=== PATIENT | male | born 1985 | race Caucasian/White ===

== ENCOUNTER 2016-12-14 05:24 | Observation (INO) | payer MEDICAID, OTHER ==
[~2016-12-14] VITALS: Ht 185.4 cm; Wt 104.3 kg
[2016-12-14 06:55] LABS: Urine Bilirubin Negative (Negative); Urine Blood Negative /uL (Negative); Urine Color Yellow (Yellow); Urine Glucose Normal (Normal); Urine Ketone Negative (Negative); Urine Nitrite Negative (Negative); Urine RBC 1 /hpf (0 - 3); Urine Urobilinogen Normal (Negative)
[2016-12-14] MEDS ORDERED: SODIUM CHLORIDE 0.9% 1,000 ML IV ONE (07:34)
[2016-12-14] MEDS ORDERED: LORazepam 2MG/ML-1ML VIAL IV ONE (07:45)
[2016-12-14] MEDS: OLANZapine 5 MG TAB PO ONE ×2 (07:48→08:25)
[2016-12-14 08:22] LABS: Basophils # (auto) 0.1 uL; Basophils % (auto) 1.2 % (0.0-2.0); Eosinophils # (auto) 0 uL; Eosinophils % (auto) 0.4 % (0.0-7.0); Hematocrit 49.8 % (41.0-53.0); Hemoglobin 17.2 g/dL (13.5-17.5); Lymphocytes # (auto) 1.8 uL; Mean Corpuscular Hemoglobin 30.7 pg (28.0-32.0); Mean Corpuscular Hgb Conc. 34.5 g/dL (32.0-36.0); Mean Corpuscular Volume 88.9 fL (80.0-100.0); Mean Platelet Volume 8.4 fL (7.4-10.4); Monocytes # (auto) 0.5 uL; Monocytes % (auto) 7.4 % (0.0-12.0); Neutrophils # (auto) 4.7 uL; Platelet Count (auto) 402 10^3/uL (140-450); Red Cell Distribution Width 13.8 % (11.6-16.0); White Blood Cell 7.1 10^3/uL (4.4-10.8)
[2016-12-14 08:32] LABS: INR 0.97 (0.9-1.15); Partial Thromboplastin Time 31.5 sec (22.64-33.71); Prothrombin Time 10.6 sec (9.37-12.3)
[2016-12-14 08:52] LABS: Salicylate 2.7 mg/dL (2.8-20.0)
[2016-12-14 08:53] LABS: Acetaminophen < 2.0 ug/mL (10-30)
[2016-12-14 09:04] VITALS: BP 167/105
[2016-12-14 09:17] LABS: Albumin 4.8 g/dL (3.4-5.0); BUN/Creatinine Ratio 4.4; Potassium 3.7 mmol/L (3.5-5.1)
[2016-12-14 09:19] LABS: Bilirubin, Total 0.3 mg/dL (0.2-1.0); Total Protein 8.4 g/dL (6.4-8.2)
== END 2016-12-14 10:31 | disposition left against medical advice (07) | DRG 753 ==
LOC: ER 05:24 → EDBD 05:24 → OVERFLOW 07:36 → ER 10:31
PROVIDERS: ADMIT Emergency Medicine; ATTEND Emergency Medicine
DX: F31.32 Bipolar disorder, current episode depressed, moderate (principal); I10 Essential (primary) hypertension; F15.10 Other stimulant abuse, uncomplicated; F12.10 Cannabis abuse, uncomplicated; F10.10 Alcohol abuse, uncomplicated; F41.9 Anxiety disorder, unspecified; F17.210 Nicotine dependence, cigarettes, uncomplicated
CPT/HCPCS: 36415; 80053; 80307; 80329; 81001; 83735; 84443; 85025; 85610; 85730; 93005; 96361; 96374; 99285; G0378; J2060; J7030

== ENCOUNTER 2016-12-26 01:19 | Emergency (ER) | payer MEDICAID ==
[~2016-12-26] VITALS: Ht 185.4 cm; Wt 99.8 kg
[2016-12-26 02:17] LABS: Basophils # (auto) 0.1 uL; Basophils % (auto) 1.4 % (0.0-2.0); CONDITION AutoValidated; Eosinophils # (auto) 0.1 uL; Eosinophils % (auto) 1.5 % (0.0-7.0); Hematocrit 50.4 % (41.0-53.0); Lymphocytes # (auto) 2.8 uL; Lymphocytes % (auto) 43.2 % (10.0-50.0); Mean Corpuscular Hemoglobin 30.6 pg (28.0-32.0); Mean Corpuscular Hgb Conc. 33.6 g/dL (32.0-36.0); Mean Corpuscular Volume 90.9 fL (80.0-100.0); Mean Platelet Volume 8.1 fL (7.4-10.4); Monocytes # (auto) 0.5 uL; Neutrophils # (auto) 3.1 uL; Neutrophils % (auto) 46.9 % (37.0-80.0); Platelet Count (auto) 382 10^3/uL (140-450); Red Cell Distribution Width 14.3 % (11.6-16.0); White Blood Cell 6.6 10^3/uL (4.4-10.8)
[2016-12-26 02:26] LABS: Acetaminophen < 2.0 ug/mL (10-30); Albumin 4.4 g/dL (3.4-5.0); BUN/Creatinine Ratio 2.4; Calcium 8.5 mg/dL (8.5-10.1); Potassium 3.9 mmol/L (3.5-5.1); Salicylate 2.8 mg/dL (2.8-20.0)
[2016-12-26 02:29] LABS: Bilirubin, Total 0.3 mg/dL (0.2-1.0)
[2016-12-26 02:50] LABS: Urine Bilirubin Negative (Negative); Urine Blood Negative /uL (Negative); Urine Color Yellow (Yellow); Urine Glucose Normal (Normal); Urine Ketone Negative (Negative); Urine Nitrite Negative (Negative); Urine RBC <1 /hpf (0 - 3); Urine Urobilinogen Normal (Negative); Urine pH 5.5 (5.0-8.0)
[2016-12-26 07:59] VITALS: BP 161/114
== END 2016-12-26 08:40 | disposition home or self-care (01) ==
LOC: ER 01:19
DX: F32.9 Major depressive disorder, single episode, unspecified (principal); F25.9 Schizoaffective disorder, unspecified; F17.210 Nicotine dependence, cigarettes, uncomplicated; F10.129 Alcohol abuse with intoxication, unspecified; F12.10 Cannabis abuse, uncomplicated; I10 Essential (primary) hypertension; Y90.8 Blood alcohol level of 240 mg/100 ml or more
CPT/HCPCS: 36415; 80053; 80307; 80320; 80329; 81001; 85025

== ENCOUNTER 2017-02-02 21:02 | Observation (INO) | payer MEDICAID ==
[~2017-02-02] VITALS: Ht 182.9 cm; Wt 86.2 kg
[2017-02-02] MEDS ORDERED: SODIUM CHLORIDE 0.9% 1,000 ML IVB ONE (21:30)
[2017-02-02 22:15] LABS: Acetaminophen < 2.0 ug/mL (10-30)
[2017-02-03] MEDS ORDERED: LORazepam 0.5 MG TAB PO ONE (11:30)
[2017-02-03] MEDS ORDERED: CITA-30 PO (12:56)
[2017-02-03] MEDS ORDERED: GABA-497 PO (12:56)
[2017-02-03] MEDS ORDERED: QUET100T38 PO (12:56)
[2017-02-03] MEDS ORDERED: BUSP15TA60 PO (12:57)
[2017-02-03] MEDS: GABAPENTIN 400 MG CAP PO SCH ×2 (14:11→22:39)
[2017-02-03] MEDS: busPIRone HCL 10 MG TAB PO SCH ×2 (14:11→22:39)
[2017-02-03] MEDS ORDERED: ONDANSETRON ODT 4 MG TAB PO ONE (18:45)
[2017-02-03] MEDS: CITALOPRAM HYDROBR 20 MG TAB PO SCH (22:39)
[2017-02-03] MEDS: QUEtiapine FUMARATE 100 MG TAB PO SCH (22:40)
[2017-02-04] MEDS ORDERED: LORazepam 0.5 MG TAB PO ONE (00:30)
[2017-02-04 06:41] LABS: Basophils # (auto) 0.2 uL; Basophils % (auto) 3.4 % (0.0-2.0); CONDITION Y; DEFINITIVE SEE PRINTOUT; Eosinophils # (auto) 0.1 uL; Eosinophils % (auto) 1.9 % (0.0-7.0); Hematocrit 45.5 % (41.0-53.0); Hemoglobin 15.8 g/dL (13.5-17.5); Lymphocytes # (auto) 1.8 uL; Lymphocytes % (auto) 30.4 % (10.0-50.0); Mean Corpuscular Hemoglobin 31.4 pg (28.0-32.0); Mean Corpuscular Hgb Conc. 34.6 g/dL (32.0-36.0); Mean Corpuscular Volume 90.6 fL (80.0-100.0); Mean Platelet Volume 8.6 fL (7.4-10.4); Monocytes # (auto) 0.6 uL; Monocytes % (auto) 10.9 % (0.0-12.0); Neutrophils # (auto) 3.2 uL; Neutrophils % (auto) 53.4 % (37.0-80.0); Platelet Count (auto) 409 10^3/uL (140-450); Red Cell Distribution Width 13.8 % (11.6-16.0); White Blood Cell 5.9 10^3/uL (4.4-10.8)
[2017-02-04 07:01] LABS: Calcium 8.3 mg/dL (8.5-10.1); Potassium 3.7 mmol/L (3.5-5.1)
[2017-02-04 07:02] LABS: BUN/Creatinine Ratio 8.6
[2017-02-04] MEDS: GABAPENTIN 400 MG CAP PO SCH ×3 (08:28→22:00)
[2017-02-04] MEDS: busPIRone HCL 10 MG TAB PO SCH ×3 (08:28→22:00)
[2017-02-04] MEDS: CITALOPRAM HYDROBR 20 MG TAB PO SCH (22:00)
[2017-02-04] MEDS: QUEtiapine FUMARATE 100 MG TAB PO SCH (22:00)
[2017-02-05] MEDS ORDERED: busPIRone HCL 10 MG TAB ONE ×3 (08:41→23:23)
[2017-02-05] MEDS ORDERED: GABAPENTIN 400 MG CAP ONE ×2 (08:42→14:13)
[2017-02-05] MEDS: busPIRone HCL 10 MG TAB PO SCH ×3 (09:00→23:34)
[2017-02-05] MEDS: GABAPENTIN 400 MG CAP PO SCH ×3 (09:00→23:34)
[2017-02-05] MEDS ORDERED: CITALOPRAM HYDROBR 20 MG TAB ONE (09:05)
[2017-02-05] MEDS ORDERED: CITALOPRAM HYDROBR 20 MG TAB PO SCH (10:00)
[2017-02-05] MEDS ORDERED: QUEtiapine FUMARATE 100 MG TAB ONE (23:23)
[2017-02-05] MEDS ORDERED: GABAPENTIN 300 MG CAP ONE (23:24)
[2017-02-05] MEDS ORDERED: GABAPENTIN 100 MG CAP ONE (23:24)
[2017-02-05] MEDS: QUEtiapine FUMARATE 100 MG TAB PO SCH (23:34)
[2017-02-06] MEDS ORDERED: busPIRone HCL 10 MG TAB PO SCH ×2 (08:00→14:00)
[2017-02-06] MEDS ORDERED: GABAPENTIN 400 MG CAP PO ONE (08:15)
[2017-02-06 08:32] VITALS: BP 169/116
[2017-02-06] MEDS ORDERED: CITALOPRAM HYDROBR 20 MG TAB PO SCH (10:00)
[2017-02-06] MEDS ORDERED: GABAPENTIN 400 MG CAP PO SCH ×2 (14:00)
[2017-02-06] MEDS ORDERED: QUEtiapine FUMARATE 100 MG TAB PO SCH (22:00)
== END 2017-02-06 13:14 | disposition home or self-care (01) | DRG 384 ==
LOC: EDBD 21:02 → ER 21:28 → OVERFLOW 21:29 → ER 02-06 13:14
PROVIDERS: ADMIT Emergency Medicine; ATTEND Emergency Medicine
DX: S51.811A Laceration without foreign body of right forearm, initial encounter (principal); F20.9 Schizophrenia, unspecified; I10 Essential (primary) hypertension; F31.30 Bipolar disorder, current episode depressed, mild or moderate severity, unspecified; F17.210 Nicotine dependence, cigarettes, uncomplicated; F12.10 Cannabis abuse, uncomplicated; F10.10 Alcohol abuse, uncomplicated; X78.8XXA Intentional self-harm by other sharp object, initial encounter; Y93.89 Activity, other specified; Y92.89 Other specified places as the place of occurrence of the external cause; Y99.8 Other external cause status
CPT/HCPCS: 36415; 80048; 80307; 80320; 80329; 85025; 96360; 96361; 99285; G0378; J7030; Q0162

== ENCOUNTER 2017-04-17 22:05 | Emergency (ER) | payer MEDICAID ==
[~2017-04-17] VITALS: Ht 185.4 cm; Wt 90.7 kg
[~2017-04-17 22:05] MED LIST: BUSP15TA60 PO; CITA-30 PO; GABA-497 PO; QUET100T38 PO
[2017-04-18 00:41] LABS: Basophils # (auto) 0 uL; Basophils % (auto) 0.4 % (0.0-2.0); Eosinophils # (auto) 0.3 uL; Eosinophils % (auto) 3.5 % (0.0-7.0); Hematocrit 45.6 % (41.0-53.0); Hemoglobin 15.5 g/dL (13.5-17.5); Lymphocytes # (auto) 1.8 uL; Mean Corpuscular Hemoglobin 31.3 pg (28.0-32.0); Mean Corpuscular Hgb Conc. 34.1 g/dL (32.0-36.0); Mean Platelet Volume 7.9 fL (6.9-10.8); Monocytes # (auto) 0.7 uL; Neutrophils # (auto) 4.6 uL; Neutrophils % (auto) 62.1 % (37.0-80.0); Nucleated Red Blood Cells % 0.1 %; Platelet Count (auto) 361 10^3/uL (140-450); Red Cell Distribution Width 14.3 % (11.8-14.3); White Blood Cell 7.4 10^3/uL (4.4-10.8)
[2017-04-18 00:54] LABS: Acetaminophen < 2.0 ug/mL (10-30); Anion Gap 12 (5-15); Aspartate Aminotransferase 42 U/L (15-37); BUN/Creatinine Ratio 5.1; Blood Urea Nitrogen 3 mg/dL (7-18); Carbon Dioxide 24 mmol/L (21-32); Chloride 102 mmol/L (98-107); GFR African American 203 mL/min; GFR Non-African American 168 mL/min; Glucose 94 mg/dL (74-106); Potassium 3.5 mmol/L (3.5-5.1); Salicylate < 1.7 mg/dL (2.8-20.0); Sodium 138 mmol/L (136-145)
[2017-04-18 00:55] LABS: Alkaline Phosphatase 84 U/L (45-117); Bilirubin, Total 0.9 mg/dL (0.2-1.0); Total Protein 7.2 g/dL (6.4-8.2)
[2017-04-18 02:37] LABS: Urine Blood Negative /uL (Negative); Urine Ca Oxalate Crystal MANY (None Seen); Urine Color Yellow (Yellow); Urine Glucose Normal (Normal); Urine Hyaline Cast FEW /lpf (0 - 2); Urine Ketone 1+ (Negative); Urine Mucus FEW (None Seen); Urine Nitrite Negative (Negative); Urine RBC 1 /hpf (0 - 3); Urine Squamous Epithelial Cell FEW /hpf (<5)
[2017-04-18 02:52] LABS: Urine Bilirubin POSITIVE (Negative)
[2017-04-18] MEDS ORDERED: LORazepam 2MG/ML-1ML VIAL IM ONE (03:15)
[2017-04-18] MEDS ORDERED: CITALOPRAM HYDROBR 20 MG TAB PO ONE (11:15)
[2017-04-18] MEDS ORDERED: GABAPENTIN 400 MG CAP PO ONE (11:15)
[2017-04-18] MEDS ORDERED: QUEtiapine FUMARATE 100 MG TAB PO ONE (11:15)
[2017-04-19] MEDS ORDERED: GABAPENTIN 100 MG CAP PO ONE (14:40)
[2017-04-19] MEDS ORDERED: CITALOPRAM HYDROBR 20 MG TAB PO ONE (14:40)
[2017-04-19] MEDS ORDERED: GABAPENTIN 400 MG CAP PO SCH (22:00)
[2017-04-19] MEDS ORDERED: QUEtiapine FUMARATE 100 MG TAB ONE (23:29)
[2017-04-19] MEDS: QUEtiapine FUMARATE 100 MG TAB PO SCH (23:37)
[2017-04-20] MEDS ORDERED: CITALOPRAM HYDROBR 20 MG TAB PO SCH (10:00)
[2017-04-20] MEDS ORDERED: GABAPENTIN 400 MG CAP PO ONE (10:15)
[2017-04-20] MEDS ORDERED: CITALOPRAM HYDROBR 20 MG TAB PO ONE (10:15)
[2017-04-20] MEDS ORDERED: GABAPENTIN 400 MG CAP PO SCH (22:00)
[2017-04-20] MEDS ORDERED: QUEtiapine FUMARATE 100 MG TAB ONE (22:28)
[2017-04-20] MEDS: QUEtiapine FUMARATE 100 MG TAB PO SCH (22:37)
[2017-04-21 00:54] VITALS: BP 128/94
[2017-04-21] MEDS ORDERED: CITALOPRAM HYDROBR 20 MG TAB PO SCH (10:00)
== END 2017-04-21 01:08 | disposition short-term general hospital (02) ==
LOC: EDBD 22:05 → ER 22:15
DX: Z04.6 Encounter for general psychiatric examination, requested by authority (principal); R45.851 Suicidal ideations; F20.9 Schizophrenia, unspecified; F15.10 Other stimulant abuse, uncomplicated; F10.10 Alcohol abuse, uncomplicated; F32.9 Major depressive disorder, single episode, unspecified; I10 Essential (primary) hypertension; F12.10 Cannabis abuse, uncomplicated; F17.210 Nicotine dependence, cigarettes, uncomplicated
CPT/HCPCS: 36415; 71010; 74176; 80053; 80307; 80320; 80329; 81001; 83735; 85025; 96372